=== PATIENT | male | born 1995 | race Two or more races ===

== ENCOUNTER 2021-08-29 20:03 | Emergency (ER) | payer OTHER ==
[~2021-08-29] VITALS: Ht 167.6 cm; Wt 72.6 kg
== END 2021-08-30 00:16 | disposition home or self-care (01) ==
LOC: ER 20:03
DX: S89.81XA Other specified injuries of right lower leg, initial encounter (principal); W19.XXXA Unspecified fall, initial encounter; Y93.89 Activity, other specified; Y92.89 Other specified places as the place of occurrence of the external cause